=== PATIENT | male | born 1935 | race Two or more races ===

== ENCOUNTER 2019-08-30 15:01 | Emergency (ER) | payer OTHER ==
[~2019-08-30] VITALS: Ht 167.6 cm; Wt 84.8 kg
[2019-08-30] MEDS ORDERED: FLEET ENEMA(ADULT) 135 ML PR ONE (17:30)
[2019-08-30 19:16] VITALS: BP 118/51
== END 2019-08-30 20:46 | disposition home or self-care (01) ==
LOC: ER 15:01
DX: K59.00 Constipation, unspecified (principal); E11.9 Type 2 diabetes mellitus without complications; E78.5 Hyperlipidemia, unspecified; I10 Essential (primary) hypertension; Z88.0 Allergy status to penicillin
CPT/HCPCS: 74018

== ENCOUNTER 2020-02-06 11:33 | Emergency (ER) | payer OTHER ==
[~2020-02-06] VITALS: Ht 170.2 cm; Wt 83.5 kg
[2020-02-06 13:24] LABS: Basophils # (auto) 0 10 ^3/uL (0-0.2); Eosinophils # (auto) 0.1 10 ^3/uL (0-0.8); Hemoglobin 7.8 g/dL (13.5-17.5); Lymphocytes # (auto) 1.2 10 ^3/uL (0.4-5.4); Monocytes # (auto) 0.7 10 ^3/uL (0-1.3); Neutrophils # (auto) 2.8 10 ^3/uL (1.6-8.6); Neutrophils % (auto) 58.7 % (37.0-80.0); Platelet Count (auto) 484 10^3/uL (140-450)
[2020-02-06 13:26] LABS: Basophils % (auto) 0.7 % (0.0-2.0); Eosinophils % (auto) 1.1 % (0.0-7.0); Hematocrit 24.6 % (41.0-53.0); Lymphocytes % (auto) 24.8 % (10.0-50.0); Mean Corpuscular Hemoglobin 25.5 pg (28.0-32.0); Mean Corpuscular Hgb Conc. 31.8 g/dL (32.0-36.0); Mean Corpuscular Volume 80.2 fL (80.0-100.0); Monocytes % (auto) 14.7 % (0.0-12.0); Nucleated Red Blood Cells % 0.1 %; Red Blood Cells 3.07 10^6/uL (4.5-5.90); Red Cell Distribution Width 17.6 % (11.8-14.3); White Blood Cell 4.7 10^3/uL (4.4-10.8)
[2020-02-06 13:38] LABS: Albumin 3.3 g/dL (3.4-5.0); Anion Gap 10 (5-15); Blood Urea Nitrogen 29 mg/dL (7-18); Calcium 8.9 mg/dL (8.5-10.1); Carbon Dioxide 21 mmol/L (21-32); Chloride 106 mmol/L (98-107); Glucose 112 mg/dL (74-106); Potassium 3.4 mmol/L (3.5-5.1); Sodium 137 mmol/L (136-145)
[2020-02-06 13:44] LABS: Alanine Aminotransferase 18 U/L (16-61); Alkaline Phosphatase 80 U/L (45-117); Aspartate Aminotransferase 11 U/L (15-37); BUN/Creatinine Ratio 16.4; Bilirubin, Total 0.4 mg/dL (0.2-1.0); GFR African American 47 mL/min; GFR Non-African American 39 mL/min
[2020-02-06 15:59] VITALS: BP 127/58
== END 2020-02-06 16:22 | disposition left against medical advice (07) ==
LOC: EDBD 11:33 → ER 11:33
DX: R07.89 Other chest pain (principal); E11.9 Type 2 diabetes mellitus without complications; E78.5 Hyperlipidemia, unspecified; I10 Essential (primary) hypertension; Z88.0 Allergy status to penicillin; Z20.828 Contact with and (suspected) exposure to other viral communicable diseases
CPT/HCPCS: 36415; 71045; 80053; 83880; 84484; 85025; 85379; 93005

== ENCOUNTER 2021-05-28 03:44 | Emergency (ER) | payer OTHER ==
[~2021-05-28] VITALS: Ht 175.3 cm; Wt 102.1 kg
[2021-05-28 05:58] LABS: Basophils # (auto) 0 10 ^3/uL (0-0.2); Basophils % (auto) 0.4 % (0.0-2.0); Eosinophils # (auto) 0.1 10 ^3/uL (0-0.8); Eosinophils % (auto) 2.2 % (0.0-7.0); Hematocrit 25.7 % (41.0-53.0); Hemoglobin 9.3 g/dL (13.5-17.5); Lymphocytes # (auto) 0.4 10 ^3/uL (0.4-5.4); Lymphocytes % (auto) 7.6 % (10.0-50.0); Mean Corpuscular Hemoglobin 31.9 pg (28.0-32.0); Mean Corpuscular Hgb Conc. 36.3 g/dL (32.0-36.0); Monocytes # (auto) 0.7 10 ^3/uL (0-1.3); Monocytes % (auto) 15.9 % (0.0-12.0); Neutrophils # (auto) 3.4 10 ^3/uL (1.6-8.6); Neutrophils % (auto) 73.9 % (37.0-80.0); Nucleated Red Blood Cells % 0.1 %; Red Blood Cells 2.92 10^6/uL (4.5-5.90); Red Cell Distribution Width 17.4 % (11.8-14.3); White Blood Cell 4.6 10^3/uL (4.4-10.8)
[2021-05-28 06:22] LABS: Albumin 2.8 g/dL (3.4-5.0); Calcium 8.9 mg/dL (8.5-10.1); Magnesium 1.9 mg/dL (1.6-2.6); Potassium 3.3 mmol/L (3.5-5.1)
[2021-05-28 06:24] LABS: BUN/Creatinine Ratio 14.9; Bilirubin, Total 0.5 mg/dL (0.2-1.0); Total Protein 5.9 g/dL (6.4-8.2)
[2021-05-28 06:39] LABS: Urine Bacteria NONE SEEN /hpf (None Seen); Urine Blood Negative /uL (Negative); Urine Hyaline Cast FEW /lpf (0 - 2); Urine Specific Gravity 1.007 (1.001-1.035); Urine WBC <1 /hpf (0 - 3)
[2021-05-28 12:44] VITALS: BP 129/27
[2021-05-28] MEDS ORDERED: POTASSIUM EFFERVESENT TAB 25 MEQ PO SCH (13:18)
== END 2021-05-28 13:30 | disposition home or self-care (01) ==
LOC: EDBD 03:44 → ER 03:48 → TELE 04:04 → UNDOADMOB 04:04 → TELE 13:30 → UNDODISOB 13:30
DX: E87.6 Hypokalemia (principal); D64.9 Anemia, unspecified
CPT/HCPCS: 36415; 70450; 71045; 80053; 81001; 83735; 84484; 85025; 93005

== ENCOUNTER 2021-09-26 09:56 | Inpatient (IN) | payer OTHER ==
[~2021-09-26] VITALS: Ht 167.6 cm; Wt 71.2 kg
[2021-09-26 10:46] LABS: Basophils # (auto) 0 10 ^3/uL (0-0.2); Basophils % (auto) 0.4 % (0.0-2.0); Eosinophils # (auto) 0.1 10 ^3/uL (0-0.8); Eosinophils % (auto) 0.9 % (0.0-7.0); Hematocrit 28.9 % (41.0-53.0); Hemoglobin 9.3 g/dL (13.5-17.5); Lymphocytes # (auto) 0.8 10 ^3/uL (0.4-5.4); Lymphocytes % (auto) 11.9 % (10.0-50.0); Mean Corpuscular Volume 90.5 fL (80.0-100.0); Monocytes # (auto) 0.6 10 ^3/uL (0-1.3); Monocytes % (auto) 8.9 % (0.0-12.0); Neutrophils % (auto) 77.9 % (37.0-80.0); Red Cell Distribution Width 20.2 % (11.8-14.3); White Blood Cell 6.4 10^3/uL (4.4-10.8)
[2021-09-26 11:05] LABS: Albumin 3.1 g/dL (3.4-5.0); BUN/Creatinine Ratio 24.8; Calcium 8.6 mg/dL (8.5-10.1); Potassium 3.9 mmol/L (3.5-5.1)
[2021-09-26 11:07] LABS: Bilirubin, Total 0.5 mg/dL (0.2-1.0)
[2021-09-26 11:17] LABS: INR 1.18 (0.9-1.15); Partial Thromboplastin Time 25.9 sec (23.6-33.0)
[2021-09-26] MEDS ORDERED: DEXTROSE (50%) 50ML SYRG IV PRN (17:00)
[2021-09-26] MEDS ORDERED: TEMAZEPAM 15 MG CAP PO PRN (17:00)
[2021-09-26] MEDS ORDERED: ONDANSETRON HCL 4 MG/2 ML VIAL IV PRN (17:00)
[2021-09-26] MEDS ORDERED: ACETAMINOPHEN 325 MG TAB PO PRN (17:00)
[2021-09-26] MEDS ORDERED: HYDROcodone-ACET 5/325MG TAB PO PRN (17:00)
[2021-09-26] MEDS ORDERED: DOCUSATE SOD 100 MG CAP PO PRN (17:00)
[2021-09-26] MEDS ORDERED: BACITRACIN TOP OINT 1 UD PKG TOP ONE (20:45)
[2021-09-26] MEDS ORDERED: BACITRACIN INJ 50000 UNIT VIAL TOP ONE (20:45)
[2021-09-26] MEDS: MORPHINE SULFATE INJ 2 MG/ml SYRG IV PRN (20:58)
[2021-09-26] MEDS: ACCU-CHEK COMFORT CURVE STRIP VI SCH (21:03)
[2021-09-26] MEDS: SODIUM CHLORIDE 0.9% 1,000 ML IV SCH (21:03)
[2021-09-26] MEDS: InsuLIN REG 1unit/0.01ml Soln (100units/ml) SC SCH (21:04)
[2021-09-26 23:45] VITALS: BP 148/59
[2021-09-27] MEDS: ACCU-CHEK COMFORT CURVE STRIP VI SCH ×4 (01:25→16:58)
[2021-09-27] MEDS: InsuLIN REG 1unit/0.01ml Soln (100units/ml) SC SCH ×4 (01:27→16:58)
[2021-09-27 05:00] VITALS: BP 124/50
[2021-09-27 06:57] LABS: Basophils # (auto) 0 10 ^3/uL (0-0.2); Basophils % (auto) 0.5 % (0.0-2.0); Eosinophils # (auto) 0.1 10 ^3/uL (0-0.8); Eosinophils % (auto) 1.8 % (0.0-7.0); Hematocrit 26.9 % (41.0-53.0); Hemoglobin 8.9 g/dL (13.5-17.5); Lymphocytes # (auto) 0.9 10 ^3/uL (0.4-5.4); Lymphocytes % (auto) 15.5 % (10.0-50.0); Mean Corpuscular Hgb Conc. 33.1 g/dL (32.0-36.0); Mean Corpuscular Volume 90.8 fL (80.0-100.0); Monocytes # (auto) 0.6 10 ^3/uL (0-1.3); Monocytes % (auto) 9.5 % (0.0-12.0); Neutrophils # (auto) 4.2 10 ^3/uL (1.6-8.6); Neutrophils % (auto) 72.7 % (37.0-80.0); Red Blood Cells 2.96 10^6/uL (4.5-5.90); White Blood Cell 5.8 10^3/uL (4.4-10.8)
[2021-09-27 07:01] LABS: Red Cell Distribution Width 20.2 % (11.8-14.3)
[2021-09-27 07:08] LABS: BUN/Creatinine Ratio 25.2; Calcium 8.5 mg/dL (8.5-10.1); Potassium 3.7 mmol/L (3.5-5.1)
[2021-09-27 07:11] LABS: Bilirubin, Total 0.6 mg/dL (0.2-1.0)
[2021-09-27 09:00] VITALS: BP 116/46
[2021-09-27] MEDS: ENOXAPARIN SOD 40 MG/0.4 ML SYRINGE SC SCH (10:17)
[2021-09-27] MEDS: SODIUM CHLORIDE 0.9% 1,000 ML IV SCH (10:17)
[2021-09-27] MEDS ORDERED: PRE5T PO (10:32)
[2021-09-27] MEDS ORDERED: AML5T PO (10:32)
[2021-09-27] MEDS ORDERED: APIX2.5T PO (10:32)
[2021-09-27] MEDS ORDERED: BENA20TA14 PO (10:32)
[2021-09-27] MEDS ORDERED: ABIR250T PO (10:32)
[2021-09-27 11:46] LABS: Urine Bacteria FEW /hpf (None Seen); Urine Blood Negative /uL (Negative); Urine Specific Gravity 1.014 (1.001-1.035); Urine WBC <1 /hpf (0 - 3)
[2021-09-27 13:00] VITALS: BP 138/51
[2021-09-27] MEDS: MORPHINE SULFATE INJ 2 MG/ml SYRG IV PRN (13:57)
[2021-09-27 16:47] VITALS: BP 131/58
[2021-09-27 22:00] VITALS: BP 154/57
[2021-09-28] MEDS: ACCU-CHEK COMFORT CURVE STRIP VI SCH ×3 (00:52→12:43)
[2021-09-28] MEDS: InsuLIN REG 1unit/0.01ml Soln (100units/ml) SC SCH ×3 (00:54→12:00)
[2021-09-28] MEDS: SODIUM CHLORIDE 0.9% 1,000 ML IV SCH (02:20)
[2021-09-28 05:14] VITALS: BP 149/59
[2021-09-28 09:33] VITALS: BP 141/58
[2021-09-28] MEDS: ENOXAPARIN SOD 40 MG/0.4 ML SYRINGE SC SCH (10:00)
[2021-09-28] MEDS ORDERED: HYDR-4902 PO (10:25)
== END 2021-09-28 12:45 | disposition home or self-care (01) | DRG 563 ==
LOC: ER 09:56 → OVERFLOW 16:57 → CENTRAL 23:52
PROVIDERS: ADMIT Internal Medicine; ATTEND Family Medicine
DX: S42.412A Displaced simple supracondylar fracture without intercondylar fracture of left humerus, initial encounter for closed fracture (principal); S00.31XA Abrasion of nose, initial encounter; E78.5 Hyperlipidemia, unspecified; E11.22 Type 2 diabetes mellitus with diabetic chronic kidney disease; I12.9 Hypertensive chronic kidney disease with stage 1 through stage 4 chronic kidney disease, or unspecified chronic kidney disease; Z20.822 Contact with and (suspected) exposure to COVID-19; N18.9 Chronic kidney disease, unspecified; W18.39XA Other fall on same level, initial encounter; E78.00 Pure hypercholesterolemia, unspecified; R29.6 Repeated falls; Z83.3 Family history of diabetes mellitus; Z80.42 Family history of malignant neoplasm of prostate; Z88.0 Allergy status to penicillin; Z80.0 Family history of malignant neoplasm of digestive organs; Y93.89 Activity, other specified; Y92.89 Other specified places as the place of occurrence of the external cause; Y99.8 Other external cause status; Z79.4 Long term (current) use of insulin; Z95.0 Presence of cardiac pacemaker
CPT/HCPCS: 36415; 70450; 70486; 71045; 72125; 72170; 73030; 73060; 73070; 73090; 73110; 73130; 80053; 81001; 82962; 83735; 84484; 85025; 85610; 85730; 86850; 86900; 86901; 93005; 93306; 93886; 96374; 96375; G0378; J1815; J2405

== ENCOUNTER 2022-10-26 07:59 | Inpatient (IN) | payer OTHER ==
[~2022-10-26] VITALS: Ht 167.6 cm; Wt 75.0 kg
[~2022-10-26 07:59] MED LIST: ABIR250T PO; AML5T PO; APIX2.5T PO; BENA-36 PO; HYDR-4902 PO; PRE5T PO
[2022-10-26] MEDS ORDERED: SODIUM CHLORIDE 0.9% 1,000 ML IV ONE ×2 (08:30→20:00)
[2022-10-26 08:35] VITALS: PULSE 71; RESP 12; O2SAT 99
[2022-10-26 09:01] LABS: Basophils # (auto) 0 10 ^3/uL (0-0.2); Eosinophils # (auto) 0 10 ^3/uL (0-0.8); Hematocrit 33.3 % (41.0-53.0); Lymphocytes # (auto) 0.7 10 ^3/uL (0.4-5.4); Monocytes # (auto) 0.4 10 ^3/uL (0-1.3); Nucleated Red Blood Cells % 0.2 %
[2022-10-26 09:03] LABS: Basophils % (auto) 0.2 % (0.0-2.0); Eosinophils % (auto) 0.2 % (0.0-7.0); Hemoglobin 11.3 g/dL (13.5-17.5); Lymphocytes % (auto) 9.4 % (10.0-50.0); Mean Corpuscular Hemoglobin 34.4 pg (28.0-32.0); Mean Corpuscular Volume 100.9 fL (80.0-100.0); Monocytes % (auto) 5.5 % (0.0-12.0); Neutrophils # (auto) 6.1 10 ^3/uL (1.6-8.6); Neutrophils % (auto) 84.7 % (37.0-80.0); White Blood Cell 7.2 10^3/uL (4.4-10.8)
[2022-10-26 09:08] LABS: Albumin 3.3 g/dL (3.4-5.0); Magnesium 2.1 mg/dL (1.6-2.6); Potassium 3.1 mmol/L (3.5-5.1)
[2022-10-26 09:10] LABS: BUN/Creatinine Ratio 23.6 (10.0-20.0); Total Protein 6.5 g/dL (6.4-8.2)
[2022-10-26 09:38] LABS: INR 1.15 (0.9-1.15); Partial Thromboplastin Time 27.2 SEC (24.5-34.5)
[2022-10-26 10:47] LABS: Urine Bacteria NONE SEEN /hpf (None Seen); Urine Blood TRACE /uL (Negative); Urine Clarity Clear (Clear); Urine Color Yellow (Yellow); Urine Protein, UAD 1+ (Negative); Urine Urobilinogen Normal (Negative); Urine WBC <1 /hpf (0 - 3); Urine pH 6.5 (5.0-8.0)
[2022-10-26] MEDS ORDERED: ACETAMINOPHEN 500 MG TAB PO ONE (13:15)
[2022-10-26] MEDS ORDERED: HALOPERIDOL LACTATE 5 MG/ML INJ VIAL IM ONE (15:30)
[2022-10-26] MEDS ORDERED: ACETAMINOPHEN 325 MG TAB PO ONE (19:15)
[2022-10-26] MEDS ORDERED: SODIUM CHLORIDE 0.9% 500 ML IV ONE ×2 (19:15→22:45)
[2022-10-26 19:45] VITALS: PULSE 90; RESP 35; O2SAT 94
[2022-10-26] MEDS ORDERED: PIPERACILLIN-TAZOB 3.375GM 100 ML IV ONE (20:00)
[2022-10-26] MEDS ORDERED: VANCOMYCIN PER PHARMACY 0 MG IV SCH (20:00)
[2022-10-26] MEDS ORDERED: HYDROcodone-ACET 5/325MG TAB PO PRN (21:00)
[2022-10-26] MEDS ORDERED: VANCOMYCIN 1GM/250ML 250 ML IV ONE (21:00)
[2022-10-26] MEDS ORDERED: DOCUSATE SOD 100 MG CAP PO PRN (21:00)
[2022-10-26] MEDS ORDERED: DEXTROSE (50%) 50ML SYRG IV PRN (21:00)
[2022-10-26] MEDS ORDERED: ACETAMINOPHEN 325 MG TAB PO PRN (21:00)
[2022-10-26] MEDS ORDERED: ONDANSETRON HCL 4 MG/2 ML VIAL IV PRN (21:00)
[2022-10-26] MEDS ORDERED: POTASSIUM CHL 20 Meq TABLET PO ONE (21:00)
[2022-10-26] MEDS ORDERED: ROCURONIUM 10MG/ML 10ML VIAL IV ONE (21:38)
[2022-10-26] MEDS ORDERED: ETOMIDATE (2MG/ML) 20ML VIAL IV ONE (21:38)
[2022-10-26] MEDS ORDERED: MIDAZOLAM DRIP 50 mg/50mL 50 ML IV SCH (21:45)
[2022-10-26] MEDS ORDERED: NOREPINEPHRINE 8 MG/250ML KIT 250 ML IV ONE (21:51)
[2022-10-26] MEDS ORDERED: MIDAZOLAM DRIP 50 mg/50mL 50 ML IV ONE (21:51)
[2022-10-26] MEDS ORDERED: InsuLIN REG 1unit/0.01ml Soln (100units/ml) SC SCH (22:00)
[2022-10-26] MEDS ORDERED: DOXYCYCLINE 100MG/250ML 250 ML IV SCH (22:00)
[2022-10-26] MEDS ORDERED: NOREPINEPHRINE 8 MG/250ML KIT 250 ML IV SCH (22:00)
[2022-10-26] MEDS: ACCU-CHEK COMFORT CURVE STRIP VI SCH (22:00)
[2022-10-26] MEDS ORDERED: APIXABAN 2.5 MG TAB PO SCH (22:00)
[2022-10-26 22:04] VITALS: BP 122/38; PULSE 87; RESP 16; O2SAT 100
[2022-10-26 22:12] LABS: Lactic Acid w/Reflex 5.2 mmol/L (0.4-2.0)
[2022-10-26 22:22] VITALS: BP 122/38; PULSE 87; RESP 16; TEMP 101.2; O2SAT 100
[2022-10-26] MEDS ORDERED: NITROGLYCERIN 0.4 MG SL TAB SL PRN (22:45)
[2022-10-26] MEDS ORDERED: MORPHINE SULFATE INJ 2 MG/ml SYRG IV PRN (22:45)
[2022-10-26] MEDS ORDERED: ALBUMIN 25% 100 ML IV ONE (22:45)
[2022-10-26] MEDS: POTASSIUM CHL 20MEQ/100ML 100 ML IV SCH (23:25)
[2022-10-26 23:38] LABS: Base Excess -18.2 mmol/L (-2.0-2.0)
[2022-10-26 23:41] VITALS: BP 85/21; PULSE 71; RESP 16; O2SAT 99
[2022-10-27] VITALS (16 sets, daily range): BP systolic 58–99; BP diastolic 18–44; PULSE 54–107; RESP 16–96; TEMP 98.1–98.4; O2SAT 81–99
[2022-10-27] MEDS ORDERED: ACETAMINOPHEN 650 MG RECT SUPP PR PRN (00:45)
[2022-10-27] MEDS: POTASSIUM CHL 20MEQ/100ML 100 ML IV SCH (01:19)
[2022-10-27] MEDS ORDERED: PHENYLEPHRINE IV 250 ML IV ONE (03:13)
[2022-10-27] MEDS ORDERED: PHENYLEPHRINE IV 250 ML IV SCH (03:15)
[2022-10-27 06:29] LABS: Potassium 4.5 mmol/L (3.5-5.1)
[2022-10-27 06:34] LABS: Albumin 2.6 g/dL (3.4-5.0); BUN/Creatinine Ratio 13.4 (10.0-20.0); Calcium 7.9 mg/dL (8.5-10.1)
[2022-10-27 06:36] LABS: Basophils # (auto) 0 10 ^3/uL (0-0.2); Basophils % (auto) 0.3 % (0.0-2.0); Bilirubin, Total 0.6 mg/dL (0.2-1.0); Eosinophils # (auto) 0.1 10 ^3/uL (0-0.8); Lymphocytes # (auto) 0.8 10 ^3/uL (0.4-5.4); Monocytes # (auto) 0.3 10 ^3/uL (0-1.3); Total Protein 5.3 g/dL (6.4-8.2)
[2022-10-27 06:40] LABS: Eosinophils % (auto) 1.2 % (0.0-7.0); Hematocrit 29.2 % (41.0-53.0); Hemoglobin 9.3 g/dL (13.5-17.5); Lymphocytes % (auto) 16.6 % (10.0-50.0); Mean Corpuscular Hemoglobin 34.4 pg (28.0-32.0); Mean Corpuscular Volume 107.5 fL (80.0-100.0); Monocytes % (auto) 5.9 % (0.0-12.0); Neutrophils # (auto) 3.5 10 ^3/uL (1.6-8.6); Nucleated Red Blood Cells % 2.5 %; Red Blood Cells 2.72 10^6/uL (4.5-5.90); Red Cell Distribution Width 15.1 % (11.8-14.3); White Blood Cell 4.6 10^3/uL (4.4-10.8)
[2022-10-27] MEDS: ACCU-CHEK COMFORT CURVE STRIP VI SCH (06:54)
[2022-10-27] MEDS ORDERED: InsuLIN REG 1unit/0.01ml Soln (100units/ml) SC SCH (07:00)
[2022-10-27] MEDS ORDERED: SODIUM BICARBONATE 8.4% INJ 50ML SYRINGE ONE (08:43)
[2022-10-27] MEDS ORDERED: SODIUM BICARBONATE 8.4 % INJ 50ML VIAL IV ONE (08:45)
[2022-10-27] MEDS ORDERED: EPINEPHrine HCL 250 ML IV SCH (08:45)
[2022-10-27] MEDS ORDERED: NOREPINEPHRINE BITARTRATE 32 MG in SODIUM CHL 0.9% 218 ML IV SCH (08:45)
[2022-10-27] MEDS ORDERED: PHENYLEPHRINE INJ 80 MG in SODIUM CHL 0.9% 242 ML IV SCH (08:45)
[2022-10-27] MEDS ORDERED: VASOPRESSIN 20 UNITS in SODIUM CHL 0.9% 99 ML IV SCH (08:45)
[2022-10-27] MEDS ORDERED: EPINEPHrine HCL 1 MG/10 ML SYRG IV ONE (17:00)
[2022-10-27] MEDS ORDERED: SODIUM BICARBONATE 8.4% INJ 50ML SYRINGE IV ONE (17:00)
[2022-10-27] MEDS ORDERED: CALCIUM CHLOR(10%) 100MG/ML 10ML SYRINGE IV ONE (17:00)
[2022-10-27] MEDS ORDERED: VANCOMYCIN 1GM/250ML 250 ML IV ONE (23:00)
== END 2022-10-27 09:42 | DRG 871 ==
LOC: ER 07:59 → TELE 22:49
PROVIDERS: ADMIT Nurse Practitioner Family; ATTEND Nurse Practitioner Family
PROC: 0BH17EZ Insertion of Endotracheal Airway into Trachea, Via Natural or Artificial Opening (ICD-10-PCS; principal; 2022-10-26)
PROC: 5A1935Z Respiratory Ventilation, Less than 24 Consecutive Hours (ICD-10-PCS; 2022-10-26)
PROC: 05HM33Z Insertion of Infusion Device into Right Internal Jugular Vein, Percutaneous Approach (ICD-10-PCS; 2022-10-26)
PROC: 5A12012 Performance of Cardiac Output, Single, Manual (ICD-10-PCS; 2022-10-27)
DX: A41.9 Sepsis, unspecified organism (principal); G93.41 Metabolic encephalopathy; J96.01 Acute respiratory failure with hypoxia; I13.0 Hypertensive heart and chronic kidney disease with heart failure and stage 1 through stage 4 chronic kidney disease, or unspecified chronic kidney disease; N39.0 Urinary tract infection, site not specified; I48.91 Unspecified atrial fibrillation; E78.5 Hyperlipidemia, unspecified; D64.9 Anemia, unspecified; E11.22 Type 2 diabetes mellitus with diabetic chronic kidney disease; N18.9 Chronic kidney disease, unspecified; I50.9 Heart failure, unspecified; E87.6 Hypokalemia; Z80.9 Family history of malignant neoplasm, unspecified; Z88.0 Allergy status to penicillin; Z95.0 Presence of cardiac pacemaker
CPT/HCPCS: 36415; 36600; 70450; 71045; 80053; 81001; 82805; 83605; 83735; 83880; 84484; 85025; 85610; 85730; 87040; 87070; 87077; 87186; 87205; 92950; 93005; 93971; 94002; 94003; 96361; 96365; 96366; 96368; 96372; G0378; J0171; J1815; J2250; J2543; J3480; J3490; P9047